=== PATIENT | female | born 1980 | race African-American/Black ===

== ENCOUNTER 2024-03-15 14:13 | Emergency (ER) | payer MEDICAID, OTHER ==
[~2024-03-15] VITALS: Ht 167.6 cm; Wt 109.0 kg
[~2024-03-15 14:13] MED LIST: KEPP500 PO
[2024-03-15 14:26] VITALS: O2SAT 96
[2024-03-15 14:55] LABS: BASOPHILS % 0.7 % (0.0-2.0); EOSINOPHILS % 1.4 % (0.0-5.0); HEMATOCRIT. 38.3 % (36.0-48.0); HEMOGLOBIN. 12.4 g/dL (12.0-16.0); LYMPHOCYTES % 33.5 % (20.0-50.0); MEAN CORPUSCULAR HEMOGLOBIN 28.2 pg (28.0-32.0); MEAN CORPUSCULAR HGB CONC 32.5 g/dL (31.0-37.0); MEAN CORPUSCULAR VOLUME 86.9 fL (81.0-99.0); MONOCYTES % 4.7 % (2.0-8.0); NEUTROPHILS % 59.7 % (40.0-76.0); PLATELET 278 x1000/uL (130-400); RED BLOOD CELL COUNT 4.41 mill/uL (4.2-5.4); RED CELL DISTRIBUTION WIDTH 14.7 % (11.6-14.6); WHITE BLOOD COUNT 6.3 x1000/uL (4.5-11.0)
[2024-03-15 15:06] LABS: CHLORIDE 109 mEq/L (98-107); POTASSIUM 3.7 mEq/L (3.5-5.1); SODIUM 140 mEq/L (136-145)
[2024-03-15 15:07] LABS: CARBON DIOXIDE 29 mEq/L (21-32)
[2024-03-15 15:08] LABS: CALCIUM 8.8 mg/dL (8.7-10.4)
[2024-03-15 15:12] LABS: CREATININE 0.8 mg/dL (0.6-1.0); GLUCOSE 101 mg/dL (70-105)
[2024-03-15 15:13] LABS: UREA NITROGEN BLOOD 10 mg/dL (9-23)
[2024-03-15 15:18] LABS: HCG SCREEN NEGATIVE
[2024-03-15 15:29] LABS: TROPONIN I HIGH SENSITIVITY < 4 ng/L (3.0-34)
[2024-03-15] MEDS: LORAZEPAM 2MG/ML INJ IV ONE (15:36)
[2024-03-15] MEDS: LEVETIRACETAM 500MG PREMIX 100 ML IV ONE ×2 (15:44→16:31)
[2024-03-15] MEDS: ACETAMINOPHEN 325MG TABLET PO ONE (16:31)
[2024-03-15] MEDS: IBUPROFEN 800MG TABLET PO ONE (16:31)
[2024-03-15] MEDS ORDERED: KEPP500 MT (21:49)
[2024-03-15 22:09] VITALS: BP 142/86; PULSE 59; RESP 23; TEMP 98
== END 2024-03-15 22:27 | disposition home or self-care (01) ==
LOC: ER 14:13
DX: R56.9 Unspecified convulsions (principal); Z90.49 Acquired absence of other specified parts of digestive tract; Z86.73 Personal history of transient ischemic attack (TIA), and cerebral infarction without residual deficits; Z59.00 Homelessness unspecified
CPT/HCPCS: 80048; 84703; 83880; 85025; 84484; 36415; 71045; 93005; 96365; 96375; 99285; 82542; J1953; J2060; Z7610